=== PATIENT | female | born 1955 | race Caucasian/White ===

== ENCOUNTER → 2018-04-16 | Outpatient (CLI) | payer OTHER ==
[~2018-04-16] MED LIST: HYDCHL25 PO; HYDR1TAB94 PO; LEVSOD50 PO; MELO7.5 PO; OMEP20ER; OMEP20ER PO; OXYB5 PO; ZOLP10 PO
== END | disposition home or self-care (01) ==
LOC: LAB SHORT 14:15 → PLD 14:15
DX: D48.5 Neoplasm of uncertain behavior of skin (principal)
CPT/HCPCS: 88305

== ENCOUNTER 2020-06-06 12:45 | Day surgery (SDC) | payer OTHER ==
[~2020-06-06] VITALS: Ht 162.6 cm; Wt 91.2 kg
[~2020-06-06 12:45] MED LIST changes: +ANASTROZOLE5 GM MC; +BENZ100A PO; +KETO10 PO; +METO25ER; +Prednisone20 MG PO
--- NOTE | 2020-06-06 16:05 | NUR ---
06/06/20 1605 Tiffanie Kay S PT. WITH GOOD CAP REFILL TO TOES ON LEFT FOOT. PT. DENIES PAIN OR NAUSEA. PT. SHAKING, DENIES BEING COLD BUT GIVEN A WARM BLANKET IN WHICH SHE STOP SHAKING MUCH.
== END 2020-06-06 16:54 | disposition home or self-care (01) ==
LOC: ORSCSDS 12:45
PROVIDERS: Orthopaedic Surgery
PROC: 0QSK04Z Reposition Left Fibula with Internal Fixation Device, Open Approach (ICD-10-PCS; principal; 2020-06-06 14:15)
PROC: 0QSH04Z Reposition Left Tibia with Internal Fixation Device, Open Approach (ICD-10-PCS; principal; 2020-06-06 14:15)
DX: S82.852A Displaced trimalleolar fracture of left lower leg, initial encounter for closed fracture (principal); Z87.891 Personal history of nicotine dependence; K21.9 Gastro-esophageal reflux disease without esophagitis; F41.8 Other specified anxiety disorders; E03.9 Hypothyroidism, unspecified; J45.909 Unspecified asthma, uncomplicated; Z85.3 Personal history of malignant neoplasm of breast; Z79.899 Other long term (current) drug therapy
CPT/HCPCS: A9270-GY; C1713; C1769; J0690; J1100; J1885; J2250; J2405; J2704; J2795; J3010; J7120

== ENCOUNTER 2020-07-13 13:09 | Day surgery (SDC) | payer OTHER ==
[~2020-07-13] VITALS: Ht 162.6 cm; Wt 87.8 kg
--- NOTE | 2020-07-13 14:57 | NUR ---
07/13/20 1457 Cathleen Hooper SCABS AND REDNESS NOTED AT INCISION LINE
--- NOTE | 2020-07-13 17:27 | NUR ---
07/13/20 1727 Jennifer uFchs PT'S OXYGEN SATURATIONS 88-92% ON ROOM AIR. PT USING INCENTIVE SPIROMETER APPROPRIATELY. PT HOLDING BREATH WHEN IN PAIN, MEDICATED WITH IV FENTANYL AND PO NORCO. PLACED ON 3L OXYGEN VIA NC, OXYGEN SATURATIONS 95-96%. PT WEANED OFF OF OXYGEN. SATURATIONS 92-93% ON ROOM AIR. PT'S PAIN IS IMPROVING. DISCHARGE INSTRUCTIONS REVIEWED. IV REMOVED. PT DISCHARGED VIA WHEELCHAIR TO WAITING CAR.
== END 2020-07-13 17:15 | disposition home or self-care (01) ==
LOC: ORSCSDS 13:09
PROVIDERS: Orthopaedic Surgery
PROC: 0YPB0YZ Removal of Other Device from Left Lower Extremity, Open Approach (ICD-10-PCS; principal; 2020-07-13 14:15)
PROC: 0SBG0ZZ Excision of Left Ankle Joint, Open Approach (ICD-10-PCS; principal; 2020-07-13 14:15)
DX: T81.42XA Infection following a procedure, deep incisional surgical site, initial encounter (principal); T84.9XXA Unspecified complication of internal orthopedic prosthetic device, implant and graft, initial encounter; S82.852D Displaced trimalleolar fracture of left lower leg, subsequent encounter for closed fracture with routine healing; E03.9 Hypothyroidism, unspecified; K21.9 Gastro-esophageal reflux disease without esophagitis; F32.9 Major depressive disorder, single episode, unspecified; Z79.899 Other long term (current) drug therapy; Z87.891 Personal history of nicotine dependence
CPT/HCPCS: 87070; 87075; 87077; 87147; 87186; 87205; A9270-GY; J0690; J1100; J1885; J2250; J2405; J2704; J2795; J3010; J3370; J7120

== ENCOUNTER 2020-09-05 08:52 | Day surgery (SDC) | payer MEDICARE, OTHER | END 2020-09-05 13:30 | disposition home or self-care (01) | LOC: WOUND 08:52 | DX: T81.31XA Disruption of external operation (surgical) wound, not elsewhere classified, initial encounter (principal); I87.2 Venous insufficiency (chronic) (peripheral); I73.9 Peripheral vascular disease, unspecified; R60.0 Localized edema; S82.852S Displaced trimalleolar fracture of left lower leg, sequela; Z91.040 Latex allergy status; Z87.891 Personal history of nicotine dependence | CPT/HCPCS: A9270; G0463 ==

== ENCOUNTER 2020-09-19 00:25 | Day surgery (SDC) | payer MEDICARE, OTHER | END 2020-09-19 22:53 | disposition home or self-care (01) | LOC: WOUND 00:25 | DX: T81.31XD Disruption of external operation (surgical) wound, not elsewhere classified, subsequent encounter (principal); I87.2 Venous insufficiency (chronic) (peripheral); L97.322 Non-pressure chronic ulcer of left ankle with fat layer exposed; S82.852S Displaced trimalleolar fracture of left lower leg, sequela; W19.XXXS Unspecified fall, sequela; R60.0 Localized edema; E03.9 Hypothyroidism, unspecified; K21.9 Gastro-esophageal reflux disease without esophagitis; Z85.3 Personal history of malignant neoplasm of breast | CPT/HCPCS: A9270 ==

== ENCOUNTER 2020-09-26 00:20 | Day surgery (SDC) | payer MEDICARE, OTHER | END 2020-09-26 23:45 | LOC: WOUND 00:20 | DX: T81.31XD Disruption of external operation (surgical) wound, not elsewhere classified, subsequent encounter (principal); I87.2 Venous insufficiency (chronic) (peripheral); L97.322 Non-pressure chronic ulcer of left ankle with fat layer exposed; S82.852S Displaced trimalleolar fracture of left lower leg, sequela; W19.XXXS Unspecified fall, sequela; R60.0 Localized edema; E03.9 Hypothyroidism, unspecified; K21.9 Gastro-esophageal reflux disease without esophagitis; Z85.3 Personal history of malignant neoplasm of breast | CPT/HCPCS: A9270 ==

== ENCOUNTER 2020-10-02 00:42 | Day surgery (SDC) | payer MEDICARE, OTHER | END 2020-10-02 23:30 | disposition home or self-care (01) | LOC: WOUND 00:42 | DX: L97.322 Non-pressure chronic ulcer of left ankle with fat layer exposed (principal); T81.31XD Disruption of external operation (surgical) wound, not elsewhere classified, subsequent encounter; I87.2 Venous insufficiency (chronic) (peripheral); K21.9 Gastro-esophageal reflux disease without esophagitis; E03.9 Hypothyroidism, unspecified; Z85.3 Personal history of malignant neoplasm of breast | CPT/HCPCS: A9270 ==

== ENCOUNTER 2020-10-09 00:34 | Day surgery (SDC) | payer MEDICARE, OTHER | END 2020-10-09 23:59 | disposition home or self-care (01) | LOC: WOUND 00:34 | DX: L97.322 Non-pressure chronic ulcer of left ankle with fat layer exposed (principal); T81.31XD Disruption of external operation (surgical) wound, not elsewhere classified, subsequent encounter; I87.2 Venous insufficiency (chronic) (peripheral); S82.852S Displaced trimalleolar fracture of left lower leg, sequela; R60.0 Localized edema; E03.9 Hypothyroidism, unspecified; K21.9 Gastro-esophageal reflux disease without esophagitis; Y83.8 Other surgical procedures as the cause of abnormal reaction of the patient, or of later complication, without mention of misadventure at the time of the procedure; W19.XXXS Unspecified fall, sequela; Z85.3 Personal history of malignant neoplasm of breast | CPT/HCPCS: A9270; G0463 ==

== ENCOUNTER 2020-10-16 00:51 | Day surgery (SDC) | payer MEDICARE, OTHER | END 2020-10-16 22:56 | disposition home or self-care (01) | LOC: WOUND 00:51 | DX: T81.31XD Disruption of external operation (surgical) wound, not elsewhere classified, subsequent encounter (principal); L97.322 Non-pressure chronic ulcer of left ankle with fat layer exposed; I87.2 Venous insufficiency (chronic) (peripheral); S82.852S Displaced trimalleolar fracture of left lower leg, sequela; R60.0 Localized edema; E03.9 Hypothyroidism, unspecified; K21.9 Gastro-esophageal reflux disease without esophagitis; Y83.8 Other surgical procedures as the cause of abnormal reaction of the patient, or of later complication, without mention of misadventure at the time of the procedure; W19.XXXS Unspecified fall, sequela; Z85.3 Personal history of malignant neoplasm of breast | CPT/HCPCS: A9270; G0463 ==

== ENCOUNTER 2020-10-30 01:24 | Day surgery (SDC) | payer MEDICARE, OTHER | END 2020-10-30 23:08 | disposition home or self-care (01) | LOC: WOUND 01:24 | DX: T81.31XA Disruption of external operation (surgical) wound, not elsewhere classified, initial encounter (principal); I87.2 Venous insufficiency (chronic) (peripheral); L97.322 Non-pressure chronic ulcer of left ankle with fat layer exposed; S82.852S Displaced trimalleolar fracture of left lower leg, sequela; R60.0 Localized edema; E03.9 Hypothyroidism, unspecified; K21.9 Gastro-esophageal reflux disease without esophagitis; G47.00 Insomnia, unspecified; X58.XXXS Exposure to other specified factors, sequela; Y83.8 Other surgical procedures as the cause of abnormal reaction of the patient, or of later complication, without mention of misadventure at the time of the procedure; Z85.3 Personal history of malignant neoplasm of breast | CPT/HCPCS: A9270 ==

== ENCOUNTER 2020-11-06 00:11 | Day surgery (SDC) | payer MEDICARE, OTHER | END 2020-11-06 23:05 | disposition home or self-care (01) | LOC: WOUND 00:11 | DX: T81.31XD Disruption of external operation (surgical) wound, not elsewhere classified, subsequent encounter (principal); I87.2 Venous insufficiency (chronic) (peripheral); L97.322 Non-pressure chronic ulcer of left ankle with fat layer exposed; S82.852S Displaced trimalleolar fracture of left lower leg, sequela; R60.0 Localized edema; Y83.8 Other surgical procedures as the cause of abnormal reaction of the patient, or of later complication, without mention of misadventure at the time of the procedure | CPT/HCPCS: A9270; G0463 ==

== ENCOUNTER 2020-11-13 00:49 | Day surgery (SDC) | payer MEDICARE, OTHER | END 2020-11-13 23:01 | disposition home or self-care (01) | LOC: WOUND 00:49 | DX: L97.321 Non-pressure chronic ulcer of left ankle limited to breakdown of skin (principal); T81.31XD Disruption of external operation (surgical) wound, not elsewhere classified, subsequent encounter; I87.2 Venous insufficiency (chronic) (peripheral); S82.852S Displaced trimalleolar fracture of left lower leg, sequela; R60.0 Localized edema; E03.9 Hypothyroidism, unspecified; K21.9 Gastro-esophageal reflux disease without esophagitis; C50.919 Malignant neoplasm of unspecified site of unspecified female breast | CPT/HCPCS: A9270 ==

== ENCOUNTER 2020-11-27 00:23 | Day surgery (SDC) | payer MEDICARE, OTHER | END 2020-11-27 22:58 | disposition home or self-care (01) | LOC: WOUND 00:23 | DX: T81.31XA Disruption of external operation (surgical) wound, not elsewhere classified, initial encounter (principal); Y83.8 Other surgical procedures as the cause of abnormal reaction of the patient, or of later complication, without mention of misadventure at the time of the procedure; I87.2 Venous insufficiency (chronic) (peripheral); L97.322 Non-pressure chronic ulcer of left ankle with fat layer exposed; S82.852S Displaced trimalleolar fracture of left lower leg, sequela; R60.0 Localized edema | CPT/HCPCS: A9270 ==

== ENCOUNTER 2020-12-04 01:41 | Day surgery (SDC) | payer MEDICARE, OTHER | END 2020-12-04 22:54 | disposition home or self-care (01) | LOC: WOUND 01:41 | DX: L97.322 Non-pressure chronic ulcer of left ankle with fat layer exposed (principal); T81.33XA Disruption of traumatic injury wound repair, initial encounter; S82.852S Displaced trimalleolar fracture of left lower leg, sequela; R60.0 Localized edema; I87.2 Venous insufficiency (chronic) (peripheral); E03.9 Hypothyroidism, unspecified; K21.9 Gastro-esophageal reflux disease without esophagitis; Y83.8 Other surgical procedures as the cause of abnormal reaction of the patient, or of later complication, without mention of misadventure at the time of the procedure; Z87.81 Personal history of (healed) traumatic fracture; Z85.3 Personal history of malignant neoplasm of breast | CPT/HCPCS: A9270 ==

== ENCOUNTER 2020-12-11 00:30 | Day surgery (SDC) | payer MEDICARE, OTHER | END 2020-12-11 22:58 | disposition home or self-care (01) | LOC: WOUND 00:30 | DX: L97.522 Non-pressure chronic ulcer of other part of left foot with fat layer exposed (principal); T81.30XA Disruption of wound, unspecified, initial encounter; I87.2 Venous insufficiency (chronic) (peripheral); R60.9 Edema, unspecified; E03.9 Hypothyroidism, unspecified; K21.9 Gastro-esophageal reflux disease without esophagitis; F32.9 Major depressive disorder, single episode, unspecified; G47.00 Insomnia, unspecified; Z85.3 Personal history of malignant neoplasm of breast | CPT/HCPCS: A9270; G0463 ==

== ENCOUNTER 2021-01-01 00:03 | Day surgery (SDC) | payer MEDICARE, OTHER | END 2021-01-01 23:09 | disposition home or self-care (01) | LOC: WOUND 00:03 | DX: T81.30XD Disruption of wound, unspecified, subsequent encounter (principal); I87.2 Venous insufficiency (chronic) (peripheral); L97.322 Non-pressure chronic ulcer of left ankle with fat layer exposed; S82.852S Displaced trimalleolar fracture of left lower leg, sequela; X58.XXXD Exposure to other specified factors, subsequent encounter; R60.0 Localized edema; E03.9 Hypothyroidism, unspecified; K21.9 Gastro-esophageal reflux disease without esophagitis | CPT/HCPCS: A9270 ==

== ENCOUNTER 2021-01-08 00:09 | Day surgery (SDC) | payer MEDICARE, OTHER | END 2021-01-08 22:54 | disposition home or self-care (01) | LOC: WOUND 00:09 | DX: T81.30XD Disruption of wound, unspecified, subsequent encounter (principal); I87.2 Venous insufficiency (chronic) (peripheral); L97.322 Non-pressure chronic ulcer of left ankle with fat layer exposed; S82.852S Displaced trimalleolar fracture of left lower leg, sequela; X58.XXXS Exposure to other specified factors, sequela; R60.0 Localized edema; E03.9 Hypothyroidism, unspecified; K21.9 Gastro-esophageal reflux disease without esophagitis | CPT/HCPCS: A9270 ==

== ENCOUNTER 2021-01-15 00:09 | Day surgery (SDC) | payer MEDICARE, OTHER | END 2021-01-15 23:02 | disposition home or self-care (01) | LOC: WOUND 00:09 | DX: T81.30XD Disruption of wound, unspecified, subsequent encounter (principal); I87.2 Venous insufficiency (chronic) (peripheral); L97.322 Non-pressure chronic ulcer of left ankle with fat layer exposed; S82.852S Displaced trimalleolar fracture of left lower leg, sequela; X58.XXXS Exposure to other specified factors, sequela; R60.0 Localized edema; K21.9 Gastro-esophageal reflux disease without esophagitis; E03.9 Hypothyroidism, unspecified; F32.9 Major depressive disorder, single episode, unspecified; Z85.3 Personal history of malignant neoplasm of breast | CPT/HCPCS: A9270 ==

== ENCOUNTER 2021-01-29 00:32 | Day surgery (SDC) | payer MEDICARE, OTHER | END 2021-01-29 23:02 | disposition home or self-care (01) | LOC: WOUND 00:32 | DX: T81.30XD Disruption of wound, unspecified, subsequent encounter (principal); I87.2 Venous insufficiency (chronic) (peripheral); L97.322 Non-pressure chronic ulcer of left ankle with fat layer exposed; S82.852S Displaced trimalleolar fracture of left lower leg, sequela; X58.XXXS Exposure to other specified factors, sequela; R60.0 Localized edema; E03.9 Hypothyroidism, unspecified; K21.9 Gastro-esophageal reflux disease without esophagitis; Z91.040 Latex allergy status | CPT/HCPCS: A9270; G0463 ==

== ENCOUNTER → 2021-02-20 | Outpatient (CLI) | payer MEDICARE, OTHER | END | disposition home or self-care (01) | LOC: LAB 11:22 → LAB SHORT 11:22 | DX: D48.5 Neoplasm of uncertain behavior of skin (principal) | CPT/HCPCS: 88305 ==

== ENCOUNTER → 2021-05-31 | Outpatient (CLI) | payer MEDICARE, OTHER | END | disposition home or self-care (01) | LOC: LAB 10:25 → LAB SHORT 10:25 | DX: I10 Essential (primary) hypertension (principal) | CPT/HCPCS: 82043 ==

== ENCOUNTER → 2022-03-25 | Outpatient (CLI) | payer OTHER, MEDICARE | END | disposition home or self-care (01) | LOC: LAB 16:00 → LAB SHORT 16:00 | DX: L08.9 Local infection of the skin and subcutaneous tissue, unspecified (principal) | CPT/HCPCS: 87070; 87077; 87186; 87205 ==

== ENCOUNTER → 2023-02-20 | Outpatient (CLI) | payer OTHER, MEDICARE ==
[~2023-02-20] MED LIST changes: +LETROZOLE2.5 M3 PO; +SYMBICORT 16010.2 GM IH
== END ==
LOC: PLD 15:24 → LAB SHORT 15:24 → LAB 15:24
DX: R23.4 Changes in skin texture (principal); D10.1 Benign neoplasm of tongue
CPT/HCPCS: 88305; 88312

== ENCOUNTER → 2023-12-11 | Outpatient (CLI) | payer OTHER, MEDICARE ==
[2023-12-11 14:06] LABS: Creatinine, Urine Random 84.6 mg/dL (27.00-270.00)
[2023-12-11 14:09] LABS: Microalb/Creat Ratio UR, Rand 51.418 mg/g (0.000-30.000); Microalbumin, Random Urine 43.5 mg/L (0.000-20.000)
== END ==
LOC: LAB SHORT 10:00 → LAB 10:00
PROVIDERS: Family Medicine
DX: I10 Essential (primary) hypertension (principal)
CPT/HCPCS: 82043; 82570